=== PATIENT | female | born 1990 | race African-American/Black ===

== ENCOUNTER 2017-07-09 21:07 | Emergency (ER) | payer OTHER ==
[~2017-07-09] VITALS: Ht 160 cm; Wt 93.0 kg
[2017-07-09 21:48] LABS: URINE BILIRUBIN NEGATIVE (Negative); URINE BLOOD NEGATIVE (Negative); URINE CLARITY CLOUDY; URINE COLOR YELLOW; URINE GLUCOSE-RANDOM* NEGATIVE (Negative); URINE KETONES NEGATIVE (Negative); URINE LEUKOCYTES-REFLEX NEGATIVE (Negative); URINE NITRITE-REFLEX NEGATIVE (Negative); URINE PROTEIN (DIPSTICK) NEGATIVE (Negative); URINE SPECIFIC GRAVITY 1.015 (1.005-1.035)
[2017-07-09] MEDS ORDERED: PROMETHAZI6.25 MG/2 PO (22:48)
[2017-07-09] MEDS ORDERED: MOBIC15 MG PO (22:51)
== END 2017-07-09 23:00 | disposition home or self-care (01) ==
LOC: ER 21:07
PROVIDERS: Physician Assistant
DX: Z32.02 Encounter for pregnancy test, result negative (principal); R05 Cough; N89.8 Other specified noninflammatory disorders of vagina; Z90.49 Acquired absence of other specified parts of digestive tract